=== PATIENT | male | born 1935 | race Caucasian/White ===

== ENCOUNTER → 2016-12-26 | Outpatient (CLI) | payer MEDICARE ==
[~2016-12-26] MED LIST: CATHETER FLUSH 10 ML SYR IV PRN; IOHEXOL 350 MG/ML 150 ML (OMNIPAQUE 350) VIAL IV ONE; NS 100 ML (IVPB) BAG IV ONE
[2016-12-26 09:03] LABS: BLOOD UREA NITROGEN 9 MG/DL (7-18); BUN/CREATININE RATIO 8; CREATININE SERUM 1.12 MG/DL (0.60-1.30); GFR ESTIMATED > 60
--- NOTE | 2016-12-26 11:00 | Diagnostic Imaging Report ---
PROCEDURE: CT angiography of the chest with contrast. TECHNIQUE: Multiple contiguous axial images were obtained through the chest after uneventful bolus administration of intravenous contrast. Reconstructed CTA MIP acquisitions were also performed. INDICATION: Asthmatic patient, sleep apnea. FINDINGS: There are no intraluminal pulmonary arterial filling defects. There is no evidence for pulmonary arterial embolus. The thoracic aorta is patent and nonaneurysmal. Trachea normal in caliber and showed no displacement. No intraluminal filling defect. There is some mild central perihilar cylindrical bronchiectasis. No bullous disease, blebs or air cyst. There is some symmetrical air trapping and features likely owing to mild COPD. There is partial atelectasis of the dependent posterior lower lobes. There is no thoracic effusion. No focal pulmonary consolidation. Right upper lobe small nodule measuring 9 mm. Mild right hilar lymphadenopathy present, the largest node 1.7 x 0.8 cm. Subcentimeter left perihilar nodes are noted. No pleural or pericardial effusion. The axilla appeared normal. The osseous structures show degenerative change otherwise unremarkable. Visualized upper abdomen unremarkable. IMPRESSION: Negative for PE. COPD. Thickening of the ectatic central airways with mild cylindrical bronchiectasis. Subcentimeter right upper lobe nodule warrants followup with mild right hilar adenopathy more likely than not reactive in nature. Repeat chest CT within 3-6 months time recommended to reevaluate the nodes and indeterminate right lung nodule. No other significant finding. Dictated by: Dictated on workstation # [id number]
== END ==
LOC: RAD 08:17
PROVIDERS: ATTEND Nurse Practitioner Family
DX: R91.1 Solitary pulmonary nodule (principal); R59.0 Localized enlarged lymph nodes; J44.9 Chronic obstructive pulmonary disease, unspecified; G47.30 Sleep apnea, unspecified
CPT/HCPCS: 36415; 71275; 82565; 84520

== ENCOUNTER 2016-12-30 20:00 | Outpatient (CLI) | payer MEDICARE | END 2016-12-31 06:47 | disposition home or self-care (01) | LOC: SLEEP 20:00 | PROVIDERS: ATTEND Nurse Practitioner Family | DX: G47.10 Hypersomnia, unspecified (principal) | CPT/HCPCS: 95810 ==

== ENCOUNTER → 2017-04-19 | Outpatient (CLI) | payer MEDICARE ==
[~2017-04-19] MED LIST changes: +IOHEXOL 350 MG/ML 100 ML (OMNIPAQUE 350) VIAL IV ONE; -IOHEXOL 350 MG/ML 150 ML (OMNIPAQUE 350) VIAL IV ONE; -NS 100 ML (IVPB) BAG IV ONE; +NS 250 ML (IVPB) BAG IV ONE
[2017-04-19 09:49] LABS: BUN/CREATININE RATIO 11; CREATININE SERUM 1.13 MG/DL (0.60-1.30); GFR ESTIMATED > 60
--- NOTE | 2017-04-19 10:51 | Diagnostic Imaging Report ---
PROCEDURE: CT chest with contrast only. TECHNIQUE: Multiple contiguous axial images were obtained through the chest after administration of intravenous contrast. INDICATION: Right hilar adenopathy. FINDINGS: The prior CT chest exam performed on 12/26/2016 noted a 1.7 x 0.8 CM node in the right hilum. On this study, there are a few nodes in the right hilum. These appear similar in size and appearance to the prior exam. Consequently, I feel they are more likely due to reactive nodes than to nodes involved by neoplasm. No other mediastinal or hilar adenopathy is noted. The overall appearance of the chest itself has not changed significantly. The heart is stable in size. Coronary artery calcifications are again noted. The aorta is not abnormally dilated and there is no sign of dissection. There is no defect within the pulmonary arteries to indicate a pulmonary embolus. As noted on the prior exam, there are emphysematous changes involving both lungs. There is a small 2.5 MM nodule in the right midlung (image 40 of 66) in retrospect this finding was present on prior exam and has not changed. I do suspect that it is a benign process. The thyroid gland is unremarkable. The sections through the upper abdomen fail to show any sign of acute abnormality. The gallbladder is surgically absent. The bone windows show dextroscoliosis of the thoracic spine as well as degenerative disc and bony disease throughout the thoracic spine. There is no acute bony abnormality noted. IMPRESSION: 1. The small lymph nodes involving the right hilum seen previously are again evident and essentially no different. The relative stability of these nodes would suggest that they are related to reactive nodes as opposed to nodes involved by neoplasm. It may prove worthwhile to have a short-term (6 month) followup CT chest exam for continued evaluation. 2. There is no other mediastinal or hilar adenopathy identified. 3. There is no acute cardiopulmonary abnormality noted. 4. There are emphysematous changes involving both lungs. 4. The small nodular density in the right midlung is most likely a benign process. Dictated by: Dictated on workstation # [id number]
== END ==
LOC: RAD 09:10
PROVIDERS: ATTEND Nurse Practitioner Family
DX: R59.0 Localized enlarged lymph nodes (principal); R91.8 Other nonspecific abnormal finding of lung field; J43.9 Emphysema, unspecified
CPT/HCPCS: 36415; 71260; 82565; 84520

== ENCOUNTER → 2017-11-14 | Outpatient (CLI) | payer MEDICARE ==
[~2017-11-14] MED LIST changes: -CATHETER FLUSH 10 ML SYR IV PRN
--- NOTE | 2017-11-14 10:27 | Diagnostic Imaging Report ---
PROCEDURE: CT chest with contrast only. TECHNIQUE: Multiple contiguous axial images were obtained through the chest after administration of intravenous contrast. INDICATION: Right hilar adenopathy, lung nodules. FINDINGS: The previous CT chest exam of 04/19/2017 noted a few right hilar nodes with a conglomerate size of 1.0 x 1.2 CM. Those nodes are again evident and no different in size or appearance. Consequently, I do suspect that they are benign. The prior study also identified a 2.5 MM nodule in the right midlung. That finding is also again identified and stable (image [id number]). No other lung mass is identified. The mild emphysematous changes involving both lungs seen previously are again visualized and no different. There is no sign of failure, pneumonia or pleural effusion. The aorta is not abnormally dilated and stable in size when compared to the prior exam. The heart size remains within normal limits. Coronary artery calcifications are noted. There is no defect within the pulmonary arteries to indicate a pulmonary embolus. The thyroid gland is unremarkable. The sections through the upper abdomen fail to show any sign of an acute abnormality. The gallbladder is surgically absent. The bone windows are unremarkable for fracture or for destructive lesion. IMPRESSION: 1. The small nodes in the right hilum and the parenchymal nodule in the right midlung seen previously appear stable. Most likely these findings are benign. A six-month followup CT chest exam would be recommended for continued evaluation. 2. There is no acute cardiopulmonary abnormality appreciated. Dictated by: Dictated on workstation # [id number]
== END ==
LOC: RAD 08:15
PROVIDERS: ATTEND Otolaryngology Otolaryngology/Facial Plastic Surgery
DX: R59.0 Localized enlarged lymph nodes (principal); R91.8 Other nonspecific abnormal finding of lung field
CPT/HCPCS: 71260

== ENCOUNTER → 2018-05-09 | Outpatient (CLI) | payer MEDICARE ==
[~2018-05-09] MED LIST changes: +HOLD METFORMIN - RECEIVED CONTRAST 20 ML VIAL IV SCH; -NS 250 ML (IVPB) BAG IV ONE
[2018-05-09 10:49] LABS: BUN/CREATININE RATIO 10; CREATININE SERUM 1.12 MG/DL (0.60-1.30); GFR ESTIMATED > 60
--- NOTE | 2018-05-09 11:36 | Diagnostic Imaging Report ---
PROCEDURE: CT chest with contrast only. TECHNIQUE: Multiple contiguous axial images were obtained through the chest after administration of intravenous contrast. Auto Exposure Controls were utilized during the CT exam to meet ALARA standards for radiation dose reduction. INDICATION: Six month followup of pulmonary nodule. COMPARISON: Correlation is made with prior CT chest from 11/14/2017. FINDINGS: No axillary lymphadenopathy is detected. Mediastinum is unremarkable. The terri are stable. No pericardial or pleural fluid is detected. Tiny nodule adjacent to the major fissure in the superior segment right lower lobe is stable at approximately 3 mm. No new parenchymal nodule or mass is seen. Upper abdomen is unremarkable. IMPRESSION: Stable CT of the chest when compared with examination from 11/14/2017. No new abnormality is detected. Dictated by: Dictated on workstation # [id number]
== END ==
LOC: RAD 10:20
PROVIDERS: ATTEND Otolaryngology Otolaryngology/Facial Plastic Surgery
DX: R91.1 Solitary pulmonary nodule (principal)
CPT/HCPCS: 36415; 71260; 82565; 84520

== ENCOUNTER → 2019-06-20 | Outpatient (CLI) | payer MEDICARE ==
[~2019-06-20] MED LIST changes: +CATHETER FLUSH 10 ML SYR IV PRN; +NS 100 ML (IVPB) BAG IV ONE
[2019-06-20 13:41] LABS: BUN/CREATININE RATIO 10; CREATININE SERUM 1.05 MG/DL (0.60-1.30); GFR ESTIMATED > 60
--- NOTE | 2019-06-20 17:00 | Diagnostic Imaging Report ---
PROCEDURE: CT chest with contrast only. TECHNIQUE: Multiple contiguous axial images were obtained through the chest after administration of intravenous contrast. Auto Exposure Controls were utilized during the CT exam to meet ALARA standards for radiation dose reduction. INDICATION: Lung nodule, right lower lobe follow-up. CORRELATION: 05/09/2018. FINDINGS: There is no significant mediastinal, axillary and/or hilar lymphadenopathy. Heart size is within normal limits with trace pericardial effusion. Scattered coronary artery calcification. Thoracic aorta with scattered plaque. The lung macias are clear of infiltrate. Small, 3 mm, noe-fissural nodule anterior right lower lobe, stable. Tiny micronodule right upper lobe, centrally, 2 mm in size. Hypoventilation at the lung bases. Emphysematous change about the lung parenchyma. Cholecystectomy clips in the upper abdomen. Advanced degenerative change of the thoracic spine, significant disc space narrowing and bridging osteophytes. IMPRESSION: Stable CT examination of the chest demonstrates no acute abnormality or significant interval change from prior study. Advanced emphysematous changes about the lung parenchyma. Dictated by: Dictated on workstation # [id number]
== END ==
LOC: RAD 13:05
PROVIDERS: ATTEND Otolaryngology Otolaryngology/Facial Plastic Surgery
DX: R91.1 Solitary pulmonary nodule (principal); J43.9 Emphysema, unspecified
CPT/HCPCS: 36415; 71260; 82565; 84520

== ENCOUNTER → 2020-04-26 | Outpatient (CLI) | payer OTHER, MEDICARE | LOC: GIR 16:38 | PROVIDERS: ATTEND Surgery | DX: Z01.89 Encounter for other specified special examinations (principal) | CPT/HCPCS: 84132 ==

== ENCOUNTER → 2020-06-12 | Outpatient (CLI) | payer MEDICARE ==
[2020-06-12 11:52] LABS: CREATININE SERUM 1.12 MG/DL (0.60-1.30); GFR ESTIMATED > 60
[2020-06-12 11:53] LABS: BUN/CREATININE RATIO 8
--- NOTE | 2020-06-12 12:52 | Diagnostic Imaging Report ---
EXAMINATION: CT chest with intravenous contrast. TECHNIQUE: Multiple contiguous axial images were obtained through the chest after the uneventful administration of intravenous contrast. All CT scans use one or more of the following dose optimizing techniques: automated exposure control, MA and/or KvP adjustment based on patient size and exam type or iterative reconstruction. HISTORY: Lung nodule. COMPARISON: 06/20/2019. FINDINGS: There is no edema or pneumonia. No pleural effusion. No pneumothorax. Stable tiny noe-fissural nodules measuring 2 to 3 mm are unchanged without suspicious nodule seen. There is mild dendriform pulmonary ossification in the lung bases. There is no axillary or supraclavicular lymphadenopathy. There is no mediastinal lymphadenopathy. Heart size is normal. There are mild coronary artery calcifications. No pericardial effusion. Aorta is normal in caliber. Limited views of the upper abdomen show changes of cholecystectomy. There are no suspicious osseous lesions. IMPRESSION: 1. Stable tiny pulmonary nodules which can be considered benign with no further follow-up needed. 2. 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 This finding can be idiopathic but can also be related to recurrent aspiration. Dictated by: Dictated on workstation # [id number]
== END ==
LOC: RAD 11:15
PROVIDERS: ATTEND Otolaryngology Otolaryngology/Facial Plastic Surgery
DX: R91.8 Other nonspecific abnormal finding of lung field (principal)
CPT/HCPCS: 36415; 71260; 82565; 84520